=== PATIENT | female | born 1965 | race Caucasian/White ===

== ENCOUNTER 2020-11-22 10:18 | Outpatient (CLI) | payer OTHER, SELFPAY ==
--- NOTE | ~2020-11-22 | XR_ITS ---
EXAMINATION: XR chest 2V DATE: 11/22/2020 10:40 INDICATION: Cough and shortness of breath, history of left breast cancer TECHNIQUE: PA and lateral views of the chest are obtained. COMPARISON: 01/06/2010 FINDINGS: There is opacification in the left lung apex. There is no pleural effusion or pneumothorax. The cardiomediastinal silhouette is normal. There is mild thoracic spondylosis. There are changes of left partial mastectomy. Surgical clips are also noted in the neck, possibly related to thyroidectom y. IMPRESSION: 1. Left upper lobe opacity could be infectious/inflammatory versus malignancy. Further evaluation wit h CT of the chest is recommended. These findings and recommendations were discussed with Dr. Camille Dias DO at 1358 hours on 021. Reviewed, dictated and finalized at location A. IMPRESSION: 1. Left upper lobe opacity could be infectious/inflammatory versus malignancy. Further evaluation with CT of the chest is recommended. These findings and recommendations were discussed with Dr. Camille Dias DO at 1358 hours on 11/22/2020.
== END 2020-11-22 10:19 | disposition home or self-care (01) ==
PROVIDERS: PCP Family Medicine; Visit Provider Family Medicine
DX: R05 Cough (principal); R06.02 Shortness of breath
CPT/HCPCS: 71046

== ENCOUNTER 2020-11-26 15:08 | Outpatient (CLI) | payer OTHER, SELFPAY ==
--- NOTE | ~2020-11-26 | CT_ITS ---
EXAMINATION:CT diagnostic chest w con DATE: 11/26/2020 16:04 INDICATION: Abnormal chest radiographs. Cough. Shortness of breath. TECHNIQUE: Computed tomography (CT) of the chest was performed with 75 mL Omnipaque 350 intravenous c ontrast. Automated exposure control and iterative reconstruction technique were employed. The dose-le ngth product (DLP) was 207.45 mGy-cm. COMPARISON: Chest 2 views 11/22/2020, 01/06/2010 FINDINGS: There is mild emphysema. There is mild atelectasis bilaterally. There is mild radiation fib rosis in anterolateral left lung. In the left lung upper lobe, there is a 4.7 x 3.6 cm mass with area s of central cavitation. There is mild scarring at the lung apices. There are changes of left mastect raysa. There is an 11 x 16 mm right paratracheal lymph node. The heart size is normal. There are glynn ry artery calcifications. No pericardial effusion. There is mild thoracic spondylosis. There is mild chronic anterior wedging of multiple thoracic vertebral bodies. IMPRESSION: 1. 4.7 x 3.6 cm mass in left lung upper lobe, consistent with primary bronchogenic carcinoma. Percuta neous CT-guided biopsy is recommended. 2. Mildly enlarged right paratracheal lymph node, which is indeterminate for metastatic disease. 3. Mild emphysema. Reviewed, dictated and finalized at location B. IMPRESSION: 1. 4.7 x 3.6 cm mass in left lung upper lobe, consistent with primary bronchoge omer carcinoma. Percutaneous CT-guided biopsy is recommended. 2. Mildly enlarged right paratracheal lymph node, which is indeterminate for me tastatic disease. 3. Mild emphysema.
== END 2020-11-26 15:09 | disposition home or self-care (01) ==
PROVIDERS: PCP Family Medicine; Visit Provider Family Medicine
DX: R05 Cough (principal); R91.8 Other nonspecific abnormal finding of lung field; J43.9 Emphysema, unspecified
CPT/HCPCS: 71260; Q9967

== ENCOUNTER 2021-06-30 08:09 | Outpatient (CLI) | payer OTHER, SELFPAY ==
--- NOTE | ~2021-06-30 | MM_ITS ---
EXAMINATION: MM screening grace RT w carlene HISTORY: Screening right mammogram, history of left mastectomy TECHNIQUE: Craniocaudal and mediolateral oblique 3-D tomosynthesis images were obtained and synthetic 2-D images were generated. CAD analysis was submitted and interpreted. COMPARISON: No prior mammogram is available for comparison at this institution. BREAST PARENCHYMAL COMPOSITION: The breasts are heterogeneously dense, which may obscure small masses . FINDINGS: There is architectural distortion in the upper outer quadrant of the breast. Scattered sriram gn-appearing calcifications are present. No suspicious mass is identified. A Port-A-Cath is noted. IMPRESSION: 1. Right breast architectural distortion which could reflect sequela of prior surgery and the patient 's baseline however no comparison is currently available. 2. Comparison with prior mammograms is necessary. BI-RADS Category 0: Incomplete: Needs comparison with prior mammograms. Reviewed, dictated and finalized at location A. ER PLANNER IMPRESSION: 1. Right breast architectural distortion which could reflect sequela of prior s urgery and the patient's baseline however no comparison is currently available. 2. Comparison with prior mammograms is necessary. BI-RADS Category 0: Incomplete: Needs comparison with prior mammograms.
== END 2021-06-30 08:10 | disposition home or self-care (01) ==
LOC: ANHIMG 08:10
PROVIDERS: PCP Family Medicine; Visit Provider Family Medicine
DX: Z12.31 Encounter for screening mammogram for malignant neoplasm of breast (principal)
CPT/HCPCS: 77063; 77067

== ENCOUNTER 2022-01-06 00:23 | Day surgery (SDC) | payer OTHER, SELFPAY ==
[2022-01-06 07:47] VITALS: BP 125/87; PULSE 106; RESP 16; TEMP 36.3; O2SAT 99
[2022-01-06 07:48] LABS: Glucose Point of Care 128 mg/dl (65-105)
[2022-01-06] MEDS: LACTATED RINGERS 1,000 ML 150 ML IV CONT (07:50)
--- NOTE | 2022-01-06 08:08 | WPDANESEPPF ---
Anes - Initial Pre Proc Eval Procedure: Operation Date: 01/06/22 09:00 Proposed Procedures p Screening Colonoscopy - Kike Banerjee MD Date/Time: 01/06/22 08:08 Surgeon: Kike Banerjee MD Pre Op Diagnosis: neoplasm screening Patient Data Age: 56 Gender: F Height: 1.7 m Weight: 84.2 kg Last Vital Signs Temp 36.3 C L 01/06/22 07:47 Pulse 106 H 01/06/22 07:47 Resp 16 01/06/22 07:47 BP 125/87 01/06/22 07:47 Pulse Ox 99 01/06/22 07:47 O2 Del Method Room Air 01/06/22 07:47 Allergies Allergy/AdvReac Type Severity Reaction Status Date / Time No Known Allergies Verified 01/06/22 07:46 Home Medications Medication Instructions Recorded Confirmed Type aspirin 325 mg tablet 325 mg PO DAILY 11/05/20 01/06/22 History losartan 50 mg tablet 50 mg PO DAILY #90 tabs 09/24/21 01/06/22 Rx metformin 1,000 mg tablet 1,000 mg PO BID #180 tabs 09/24/21 01/06/22 Rx rosuvastatin 20 mg tablet See Rx Instructions .Route 12/01/21 01/06/22 Rx .COMPLEX #90 tabs empagliflozin 25 mg tablet See Rx Instructions .Route 12/02/21 01/06/22 Rx (Jardiance) .COMPLEX #90 tabs cholecalciferol (vitamin D3) 1,250 1 cap PO WEEKLY 12/18/21 01/06/22 History mcg (50,000 unit) capsule fenofibrate 160 mg tablet 160 mg PO DAILY 01/06/22 01/06/22 History Laboratory Tests 01/06/22 07:44 POC Capillary Glucose 128 mg/dl H mg/dl (65-105) Patient hx anesthesia problems: none Family hx anesthesia problems: none Results Review: All pre-operative results and documents have been reviewed as part of the pre-operative evaluation. [facility] Surgical History Surgical History H/O left mastectomy History of colon resection S/P lobectomy of lung (12/20/20) left thoracotomy and upper lobectomy with lymph node dissection S/P thoracotomy Family History Family History Father Brain cancer Hypertension Mother Breast cancer Diabetes mellitus Hypertension Depression Cerebrovascular accident Sibling Cancer Social History Social History Years smoked: 30 Smoking status: Former smoker Tobacco type: cigarettes Alcohol intake: current Drinks per week: 2 Substance use: never Substance use type: does not use Living arrangements: alone Gender identity (if verbalized by the patient): Female Spiritual care concerns: No Anes - Eval Final PreProcedure Day of Procedure 01/06/22 08:08 Patient weight: overweight Heart: regular rate and rhythm Lungs: clear to auscultation Airway: Mallampati scale class II Neurological: alert and oriented Last oral intake: >/= 8 hours ASA classification: IV Emergent: no Anesthesia type and monitoring: general GIVS Results Review: All pre-operative results and documents have been reviewed as part of the pre-operative evaluation. Informed Consent: The patient's anesthetic plan and its attendant risks and benefits were discussed with the patient/family/POA. Questions were solicited and answers provided to the satisfaction of the patient/family/POA.
--- NOTE | 2022-01-06 08:18 | WPDGICN ---
Assessment and Plan Assessment and plan (1) History of carcinoma in situ of colon: Code(s): Z86.004 - Personal history of in-situ neoplasm of other and unspecified digestive organs Status: Acute Assessment and Plan: Patient presents for follow-up colonoscopy. Three years ago was found to have a large malignant polyp at the ileocecal valve. The required surgical resection. This was felt to have cancer contained within the polyp. Plan is for surveillance colonoscopy now. Further recommendations will be given after endoscopy. Anticipate follow-up colonoscopy at 3-5 year intervals. (2) Lung cancer: Code(s): C34.90 - Malignant neoplasm of unspecified part of unspecified bronchus or lung Status: Acute (3) History of breast cancer: Code(s): Z85.3 - Personal history of malignant neoplasm of breast Status: Acute GI Consult Note Consult date/time: 01/06/22 08:18 Reason for consult: Neoplasia screening. HPI: Tatyana Brar is a 56 year old female Presents for follow-up colonoscopy. Patient had colonoscopy 3 years ago at [facility]. Was found to have a large colon polyp at the ileocecal valve. At the time of resection was found to have carcinoma in Situ. She presents today for follow-up colonoscopy. She reports that her current weight appetite and bowel movements are normal. She denies abdominal pain. Patient's past medical history is significant for breast cancer in 2004. She has a history of lung cancer with left upper lobe resection in January of 2021. Currently followed by [facility]. Review of Systems Review of Systems: Review of systems noncontributory. [facility] Surgical History Surgical History H/O left mastectomy History of colon resection S/P lobectomy of lung (12/20/20) left thoracotomy and upper lobectomy with lymph node dissection S/P thoracotomy Family History Family History Father Brain cancer Hypertension Mother Breast cancer Diabetes mellitus Hypertension Depression Cerebrovascular accident Sibling Cancer Social History Social History Years smoked: 30 Smoking status: Former smoker Tobacco type: cigarettes Alcohol intake: current Drinks per week: 2 Substance use: never Substance use type: does not use Living arrangements: alone Gender identity (if verbalized by the patient): Female Spiritual care concerns: No Meds Home Medications and Allergies Home Medications Medication Instructions Recorded Confirmed Type aspirin 325 mg tablet 325 mg PO DAILY 11/05/20 01/06/22 History losartan 50 mg tablet 50 mg PO DAILY #90 tabs 09/24/21 01/06/22 Rx metformin 1,000 mg tablet 1,000 mg PO BID #180 tabs 09/24/21 01/06/22 Rx rosuvastatin 20 mg tablet See Rx Instructions .Route 12/01/21 01/06/22 Rx .COMPLEX #90 tabs empagliflozin 25 mg tablet See Rx Instructions .Route 12/02/21 01/06/22 Rx (Jardiance) .COMPLEX #90 tabs cholecalciferol (vitamin D3) 1,250 1 cap PO WEEKLY 12/18/21 01/06/22 History mcg (50,000 unit) capsule fenofibrate 160 mg tablet 160 mg PO DAILY 01/06/22 01/06/22 History Allergies Allergy/AdvReac Type Severity Reaction Status Date / Time No Known Allergies Verified 01/06/22 07:46 Vital Signs Vital Signs - 24 hr 01/06/22 07:47 Temperature 97.3 F L Pulse Rate 106 H Respiratory Rate 16 Blood Pressure 125/87 Pulse Oximetry 99 Oxygen Delivery Room Air Exam Narrative: Physical exam reveals patient to be alert. Vital signs stable. HEENT exam is unremarkable. Lungs are clear to auscultation and percussion. Heart is without murmur. Abdomen bowel sounds present soft nontender with no organomegaly. Digital external rectal exam is normal.
[2022-01-06 09:18] VITALS: BP 96/59; PULSE 85; RESP 27; O2SAT 100
[2022-01-06 09:28] VITALS: BP 106/69; PULSE 88; RESP 25; O2SAT 100
[2022-01-06 09:38] VITALS: BP 109/75; PULSE 85; RESP 28; O2SAT 100
== END 2022-01-06 09:43 | disposition home or self-care (01) ==
PROVIDERS: PCP Family Medicine; Visit Provider Internal Medicine Gastroenterology
PROC: 0DJD8ZZ Inspection of Lower Intestinal Tract, Via Natural or Artificial Opening Endoscopic (ICD-10-PCS; CPT 45378; principal; 2022-01-06 09:00)
DX: Z08 Encounter for follow-up examination after completed treatment for malignant neoplasm (principal); K64.8 Other hemorrhoids; Z85.038 Personal history of other malignant neoplasm of large intestine; Z98.0 Intestinal bypass and anastomosis status; Z90.49 Acquired absence of other specified parts of digestive tract; Z85.118 Personal history of other malignant neoplasm of bronchus and lung; Z90.2 Acquired absence of lung [part of]; Z85.3 Personal history of malignant neoplasm of breast; Z90.12 Acquired absence of left breast and nipple; Z87.891 Personal history of nicotine dependence; Z79.82 Long term (current) use of aspirin; Z79.84 Long term (current) use of oral hypoglycemic drugs
CPT/HCPCS: 45378; 82948; J2704; J7120

== ENCOUNTER → 2022-02-23 16:04 | Outpatient (CLI) | payer OTHER, SELFPAY ==
--- NOTE | ~2022-02-23 | DEXA_ITS ---
Bone Density Report Name: CONSTANTINO COFFEY Age: 56 Sex: Female Ethnicity: White Date of : 1965 Indication: postmenopausal; screening for osteoporosis; height loss; hysterectomy; Referring Provider: Camille Dias Study: Bone densitometry was performed. Exam Date: February 23, 2022 Accession number: [id number] Bone Density: Region BMD T-score Z-score Classification AP Spine (L1-L4) 0.965 -0.7 0.4 Normal Femoral Neck (Left) 0.717 -1.2 -0.1 Osteopenia Total Hip (Left) 0.859 -0.7 0.0 Normal Femoral Neck (Right) 0.727 -1.1 0.0 Osteopenia Total Hip (Right) 0.902 -0.3 0.4 Normal Total Hip Mean 0.881 -0.5 0.2 Normal World Health Organization criteria for BMD impression classify patients as: Normal (T-score at or above -1.0), Osteopenia (T-score between -1.0 and -2.5), or Osteoporosis (T-score at or below -2.5). 10-year Fracture Risk(1): Major Osteoporotic Fracture 6.1% Hip Fracture 0.3% Reported Risk Factors: [place] (), Neck BMD=0.717, BMI=30.0 (1) FRAX(R) Version 3.08. Fracture probability calculated for an untreated patient. Fracture probability may be lower if the patient has received treatment. Clinical Information Provided by Patient: Has used the following medications: Vitamin D Has the following medical conditions: Hysterectomy, Parathyroid removed, colon cancer, lung cancer Patient maximum height was 67.5 Menopause Age: 44 No regular weight bearing exercise Drinks caffeinated beverages Onset of menses at age 14 Number of children 1 Missed period for more than 6 months in a row Impression: The patient has low bone mass, based on the Left Femoral Neck T-score. The patient has an estimated ten-year risk of hip fracture of 0.3% and an estimated ten-year risk of major fracture of 6.1%, based on the WHO FRAX algorithm. Discussion: BONE DENSITY IS LOW AT ONE OR MORE SKELETAL SITES. This patient's lowest T-score is low at one or more skeletal sites. It meets the World Health Organization's (WHO) criteria for ?low bone mass? (T-score between -1.0 and -2.5). The patient's 10-year risk of fracture as calculated by FRAX is less than the threshold where pharmacological therapy is recommended by the National Osteoporosis Foundation (NOF). However, all treatment decisions require clinical judgment and consideration of individual patient factors, including patient preferences, comorbidities, previous drug use, risk factors not captured in the FRAX model (e.g., frailty, falls, vitamin D deficiency, increased bone turnover, interval significant decline in bone density) and possible under or overestimation of fracture risk by FRAX. The patient should follow a healthful lifestyle (good nutrition with adequate calcium and vitamin D, and appropriate weight-bearing exercise). Follow-Up: Consider
== END ==
PROVIDERS: PCP Family Medicine; Visit Provider Family Medicine
DX: Z78.0 Asymptomatic menopausal state (principal); M85.852 Other specified disorders of bone density and structure, left thigh; M85.851 Other specified disorders of bone density and structure, right thigh
CPT/HCPCS: 77080

== ENCOUNTER 2022-08-19 15:17 | Outpatient (CLI) | payer OTHER, SELFPAY ==
--- NOTE | ~2022-08-19 | MM_ITS ---
EXAMINATION: MM screening grace RT w carlene HISTORY: Screening TECHNIQUE: Craniocaudal and mediolateral oblique 3-D tomosynthesis images were obtained and synthetic 2-D images were generated. CAD analysis was submitted and interpreted. COMPARISON: Comparison to multiple prior studies sequentially, with oldest reviewed study dated 08/2018. BREAST PARENCHYMAL COMPOSITION: The right breast is heterogeneously dense, which may obscure small ma sses FINDINGS: There is new focal asymmetry centered in the upper outer quadrant of the right breast, midd le third. There are no suspicious calcifications. IMPRESSION: 1. New right breast asymmetry. 2. Additional mammographic views and possible breast ultrasound are recommended. BI-RADS Category 0: Incomplete: Needs additional imaging evaluation. Reviewed, dictated and finalized at location A. MARKETER IMPRESSION: 1. New right breast asymmetry. 2. Additional mammographic views and possible breast ultrasound are recommended . BI-RADS Category 0: Incomplete: Needs additional imaging evaluation.
== END 2022-08-19 15:18 | disposition home or self-care (01) ==
LOC: ANHIMG 15:21
PROVIDERS: PCP Family Medicine; Visit Provider Family Medicine
DX: Z12.31 Encounter for screening mammogram for malignant neoplasm of breast (principal); R92.8 Other abnormal and inconclusive findings on diagnostic imaging of breast
CPT/HCPCS: 77063; 77067

== ENCOUNTER 2022-09-07 12:41 | Outpatient (CLI) | payer OTHER, SELFPAY ==
--- NOTE | ~2022-09-07 | MMUS_ITS ---
EXAMINATION: MM diagnostic grace RT w carlene, US breast RT limited HISTORY: New focal asymmetry of right breast, upper outer quadrant, reported on August 19, 2022 scre ening mammogram TECHNIQUE: Additional 3-D tomosynthesis images of the right breast were performed and synthetic 2-D i mages were generated. CAD analysis was submitted and interpreted. High resolution upper outer and low er-outer quadrant right breast ultrasound was performed. COMPARISON: August 19, 2022 bilateral screening mammogram FINDINGS: MAMMOGRAPHIC FINDINGS: No reproducible mass, architectural distortion, malignant skin, skin thickening or retraction is note d. There is a biopsy marker on the right; history of prior benign right breast biopsy. There are scatter ed benign right breast calcifications. ULTRASOUND: Real-time imaging of upper outer and lower-outer quadrants of right breast reveals no suspicious mass or shadowing or other significant sonographic abnormality. IMPRESSION: 1. No mammographic evidence of malignancy 2. Routine annual mammographic screening is recommended BI-RADS Category 2: Benign finding(s). Reviewed, dictated and finalized at location A. CH COMMUNICATION INSTRUCTOR IMPRESSION: 1. No mammographic evidence of malignancy 2. Routine annual mammographic screening is recommended BI-RADS Category 2: Benign finding(s).
== END 2022-09-07 12:42 | disposition home or self-care (01) ==
PROVIDERS: PCP Family Medicine; Visit Provider Nurse Practitioner
DX: R92.8 Other abnormal and inconclusive findings on diagnostic imaging of breast (principal)
CPT/HCPCS: 76642; 77061; 77065; G0279

== ENCOUNTER 2023-10-25 12:32 | Outpatient (CLI) | payer OTHER, SELFPAY ==
--- NOTE | ~2023-10-25 | MMUS_ITS ---
EXAMINATION: MM diagnostic grace RT w carlene, US breast RT limited HISTORY: Status post left mastectomy for malignancy, 2004 TECHNIQUE: ML, MLO and CC 3-D tomosynthesis images of the right breast were performed and synthetic 2 -D images were generated. CAD analysis was submitted and interpreted. High resolution upper outer nevaeh drant and lower outer quadrant right breast ultrasound was performed. COMPARISON: September 07, 2022 diagnostic right mammogram and limited right breast ultrasound BREAST PARENCHYMAL COMPOSITION: There are scattered areas of fibroglandular density. FINDINGS: MAMMOGRAPHIC FINDINGS: There is a biopsy marker in the upper outer quadrant of the right breast. Status post right reduction mammoplasty. Occasional benign calcifications. No suspicious mass is noted. No interval architectural distortion is evident since 06/30/2021. ULTRASOUND: No suspicious mass or shadowing or significant abnormal vascularity is identified. IMPRESSION: 1. Status post right reduction mammoplasty; no evidence of malignancy or significant change since 2. Routine annual mammographic screening is recommended BI-RADS Category 2: Benign finding(s). Reviewed, dictated and finalized at location B. IMPRESSION: 1. Status post right reduction mammoplasty; no evidence of malignancy or signif icant change since 06/30/2021 2. Routine annual mammographic screening is recommended BI-RADS Category 2: Benign finding(s).
== END 2023-10-25 12:33 | disposition home or self-care (01) ==
LOC: ANHIMG 12:49
PROVIDERS: PCP Family Medicine; Visit Provider Nurse Practitioner
DX: Z85.3 Personal history of malignant neoplasm of breast (principal)
CPT/HCPCS: 76642; 77061; 77065; G0279

== ENCOUNTER 2025-01-24 07:49 | Outpatient (CLI) | payer OTHER, SELFPAY ==
--- NOTE | ~2025-01-24 | MMUS_ITS ---
EXAMINATION: MM diagnostic grace RT w carlene, US breast RT limited HISTORY: Comparison to multiple prior studies sequentially, with oldest reviewed study dated 019. TECHNIQUE: Additional 3-D tomosynthesis images of the right breast were performed and synthetic 2-D i mages were generated. CAD analysis was submitted and interpreted. High resolution Limited right breas t ultrasound was performed. COMPARISON: Comparison to multiple prior studies sequentially, with oldest reviewed study dated 10/02. BREAST PARENCHYMAL COMPOSITION: Not dense: There are scattered areas of fibroglandular density. FINDINGS: MAMMOGRAPHIC FINDINGS: There is a persistent mass superiorly in the right breast, posterior third, seen on MLO view only. Th ere is architectural distortion from previous lumpectomy. There are benign appearing calcifications. ULTRASOUND: Limited right breast ultrasound normal heterogeneous echotexture without focal solid or cystic mass. IMPRESSION: 1. Probable benign right breast mass superiorly on MLO view, posterior third. This likely represents benign intramammary lymph node without sonographic correlate. 2. Recommend 6 month follow-up diagnostic right mammogram BI-RADS category 3, probably benign findings. Reviewed, dictated and finalized at location A. IMPRESSION: 1. Probable benign right breast mass superiorly on MLO view, posterior third. T his likely represents benign intramammary lymph node without sonographic correl ate. 2. Recommend 6 month follow-up diagnostic right mammogram BI-RADS category 3, probably benign findings.
--- NOTE | ~2025-01-24 | DEXA_ITS ---
Bone Density Report Name: CONSTANTINO COFFEY Age: 59 Sex: Female Ethnicity: White Date of : 1965 Indication: postmenopausal; screening for osteoporosis; height loss; hysterectomy; Referring Provider: Addie Camejo Study: Bone densitometry was performed. Exam Date: January 24, 2025 Accession number: [id number] Bone Density: Region BMD T-score Z-score Classification AP Spine(L1-L4) 0.974 -0.7 0.7 Normal Femoral Neck (Left) 0.625 -2.0 -0.8 Osteopenia Total Hip (Left) 0.834 -0.9 0.0 Normal Femoral Neck (Right) 0.675 -1.6 -0.3 Osteopenia Total Hip (Right) 0.872 -0.6 0.3 Normal Total Hip Mean 0.853 -0.8 0.2 Normal World Health Organization criteria for BMD impression classify patients as: Normal (T-score at or above -1.0), Osteopenia (T-score between -1.0 and -2.5), or Osteoporosis (T-score at or below -2.5). 10-year Fracture Risk(1): Major Osteoporotic Fracture 8.7% Hip Fracture 1.0% Reported Risk Factors: [place] (), Neck BMD=0.625, BMI=28.5 (1) FRAX(R) Version 3.08. Fracture probability calculated for an untreated patient. Fracture probability may be lower if the patient has received treatment. Previous Exams: -- Region Exam Age BMD T-score BMD Change BMD Change Date g/cm2 vs Baseline vs Previous -- AP Spine (L1-L4) 01/24/2025 59 0.974 -0.7 0.8% 0.8% 02/23/2022 56 0.965 -0.7 Total Hip(Left) 01/24/2025 59 0.834 -0.9 -2.9% -2.9% 02/23/2022 56 0.859 -0.7 Total Hip(Right) 01/24/2025 59 0.872 -0.6 -3.3%* -3.3%* 02/23/2022 56 0.902 -0.3 -- *Denotes significance at 95% confidence level, LSC for AP Spine = 0.022 g/cm2, LSC for Total Hip = 0.027 g/cm2 Clinical Information Provided by Patient: Has used the following medications: Vitamin D, Calcium Has the following medical conditions: Hysterectomy Patient maximum height was 67.5 Menopause Age: 44 No regular weight bearing exercise Drinks caffeinated beverages Onset of menses at age 14 Number of children 1 Missed period for more than 6 months in a row Impression: The patient has low bone mass, based on the Left Femoral Neck T-score. The patient has an estimated ten-year risk of hip fracture of 1% and an estimated ten-year risk of major fracture of 8.7%, based on the WHO FRAX algorithm. The BMD for the Total Hip(Right) decreased, changing by -3.3% since the last DXA exam. Discussion: BONE DENSITY IS LOW AT ONE OR MORE SKELETAL SITES. This patient's lowest T-score is low at one or more skeletal sites. It meets the World Health Organization's (WHO) criteria for ?low bone mass? (T-score between -1.0 and -2.5). The patient's 10-year risk of fracture as calculated by FRAX is less than the threshold where pharmacological therapy is recommended by the National Osteoporosis Foundation (NOF). However, all treatment decisions require clinical judgment and consideration of individual patient factors, including patient preferences, comorbidities, previous drug use, risk factors not captured in the FRAX model (e.g., frailty, falls, vitamin D deficiency, increased bone turnover, interval significant decline in bone density) and possible under or overestimation of fracture risk by FRAX. The patient should follow a healthful lifestyle (good nutrition with adequate calcium and vitamin D, and appropriate weight-bearing exercise). Follow-Up: Consider repeating this study in 2 years to reassess this patient's status, or sooner if there is some new clinical indication. Reported by: PÉREZ on 01/24/2025 8:20:00 AM. Reviewed, dictated and finalized at location A.
== END 2025-01-24 07:50 | disposition home or self-care (01) ==
LOC: MICIMG 07:50
PROVIDERS: PCP Family Medicine; Visit Provider Nurse Practitioner
DX: R92.8 Other abnormal and inconclusive findings on diagnostic imaging of breast (principal); M85.88 Other specified disorders of bone density and structure, other site; M85.852 Other specified disorders of bone density and structure, left thigh; M85.851 Other specified disorders of bone density and structure, right thigh
CPT/HCPCS: 76642; 77061; 77065; 77080; G0279